=== PATIENT | female | born 1980 | race Caucasian/White ===

== ENCOUNTER → 2016-10-19 | Outpatient (CLI) | payer MEDICARE ==
[~2016-10-19] MED LIST: ARIP15TA2 PO; BUPR300T49 PO; CETI10CA PO; DIGO125T PO; METO25TA35 PO
== END | disposition home or self-care (01) ==
LOC: CFH 08:21
PROVIDERS: ATTEND Nurse Practitioner Primary Care
DX: K76.0 Fatty (change of) liver, not elsewhere classified (principal); K21.9 Gastro-esophageal reflux disease without esophagitis; E78.1 Pure hyperglyceridemia; F32.89 Other specified depressive episodes; Z90.81 Acquired absence of spleen
CPT/HCPCS: 76700

== ENCOUNTER 2017-06-03 15:16 | Emergency (ER) | payer MEDICARE ==
[~2017-06-03] VITALS: Ht 177.8 cm; Wt 112.0 kg
[~2017-06-03 15:16] MED LIST changes: -ARIP15TA2 PO; +ARIP15TA3 PO
[2017-06-03 17:35] LABS: BASOPHILS # (AUTO) 0.03 x10^3/uL (0-0.1); BASOPHILS % (AUTO) 0 % (0-1); EOSINOPHILS # (AUTO) 0.12 x10^3/uL (0-0.4); EOSINOPHILS % (AUTO) 1 % (1-7); LYMPHOCYTES # (AUTO) 1.97 x10^3/uL (1-3.4); LYMPHOCYTES % (AUTO) 23 % (22-44); MD NO; MEAN CORPUSCULAR HEMOGLOBIN 31.4 pg (27.0-34.8); MEAN CORPUSCULAR HGB CONC 34.1 g/dL (32.4-35.8); MEAN PLATELET VOLUME 8.8 fL (7.4-10.4); MONOCYTES # (AUTO) 0.45 x10^3/uL (0.2-0.8); MONOCYTES % (AUTO) 5 % (2-9); NEUTROPHILS # (AUTO) 6.02 x10^3/uL (1.8-6.8); NEUTROPHILS % (AUTO) 70 % (42-75); PLATELET COUNT 311 x10^3/uL (130-400); RED BLOOD COUNT 4.69 x10^6/uL (3.82-5.3); RED CELL DISTRIBUTION WIDTH 13.2 % (9.6-15.2)
[2017-06-03 17:47] LABS: ALBUMIN 4.4 g/dL (3.4-5.0); ANION GAP 5 mmol/L (5-15); CALCIUM 9.4 mg/dL (8.5-10.1); CHLORIDE 106 mmol/L (98-107)
[2017-06-03 17:48] LABS: CREATININE 1.04 mg/dL (0.55-1.02)
[2017-06-03 18:39] VITALS: BP 117/67
== END 2017-06-03 18:58 | disposition home or self-care (01) ==
LOC: ED 18:11
DX: R07.89 Other chest pain (principal); E78.5 Hyperlipidemia, unspecified; R11.0 Nausea; R61 Generalized hyperhidrosis
CPT/HCPCS: 36415; 71046; 80048; 82040; 84484; 85025; 85379; 93005